=== PATIENT | female | born 1950 | race Caucasian/White ===

== ENCOUNTER → 2017-03-04 | Outpatient (CLI) | payer MEDICARE, OTHER | END | disposition home or self-care (01) | LOC: RAD 14:56 | PROVIDERS: ATTEND Family Medicine | DX: R10.9 Unspecified abdominal pain (principal) | CPT/HCPCS: 74020 ==

== ENCOUNTER → 2018-04-23 | Outpatient (CLI) | payer MEDICARE | END | disposition home or self-care (01) | LOC: CFH 13:11 → EDSTATUS 14:00 | PROVIDERS: ATTEND Family Medicine | DX: Z13.820 Encounter for screening for osteoporosis (principal); Z12.31 Encounter for screening mammogram for malignant neoplasm of breast; M85.88 Other specified disorders of bone density and structure, other site; N95.9 Unspecified menopausal and perimenopausal disorder; R92.1 Mammographic calcification found on diagnostic imaging of breast | CPT/HCPCS: 77063; 77080; 77067 ==

== ENCOUNTER 2020-10-03 07:22 | Outpatient (CLI) | payer MEDICARE ==
[~2020-10-03 07:22] MED LIST: ASPI-496 PO; HUMALOG; LEVO100T PO; NPH,100I4 SQ
[2020-10-04] MEDS ORDERED: REGADENOSON 0.4 MG/5 ML SYRINGE ONE (07:38)
== END 2020-10-04 23:59 | disposition home or self-care (01) ==
LOC: CFH 07:22
PROVIDERS: ATTEND Internal Medicine Cardiovascular Disease
DX: R94.31 Abnormal electrocardiogram [ECG] [EKG] (principal); I48.0 Paroxysmal atrial fibrillation
CPT/HCPCS: 78452; 93017; A9502; J2785

== ENCOUNTER → 2020-10-22 | Outpatient (CLI) | payer MEDICARE | END | disposition home or self-care (01) | LOC: CVU 15:20 | PROVIDERS: ATTEND Internal Medicine Cardiovascular Disease | DX: I08.1 Rheumatic disorders of both mitral and tricuspid valves (principal); E11.9 Type 2 diabetes mellitus without complications; I48.91 Unspecified atrial fibrillation; I10 Essential (primary) hypertension; Z79.01 Long term (current) use of anticoagulants | CPT/HCPCS: 93306; 93356 ==

== ENCOUNTER 2021-01-16 10:30 | Observation (INO) | payer MEDICARE ==
[~2021-01-16] VITALS: Ht 157.5 cm; Wt 88.0 kg
[2021-01-16] MEDS ORDERED: SODIUM CHLORIDE 0.9% 1,000 ML IV SCH (11:00)
[2021-01-16] MEDS ORDERED: ROSU10TA2 PO (11:12)
[2021-01-16] MEDS ORDERED: lispro insulin SQ (11:12)
[2021-01-16] MEDS ORDERED: METO50TA82 PO (11:12)
[2021-01-16] MEDS ORDERED: APIX5TAB PO (11:12)
[2021-01-16] MEDS ORDERED: TRAZ50TA66 PO (11:12)
[2021-01-16] MEDS ORDERED: FLEC50TA25 PO (11:12)
[2021-01-16 11:16] LABS: BASOPHILS % (AUTO) 1 % (0-1); EOSINOPHILS % (AUTO) 1 % (1-7); LYMPHOCYTES % (AUTO) 16 % (22-44); MEAN CORPUSCULAR HEMOGLOBIN 27.9 pg (27.0-34.8); MEAN CORPUSCULAR HGB CONC 32.6 g/dL (32.4-35.8); MEAN PLATELET VOLUME 8.8 fL (7.4-10.4); MONOCYTES % (AUTO) 7 % (2-9); NEUTROPHILS % (AUTO) 75 % (42-75); PLATELET COUNT 287 x10^3/uL (130-400); RED CELL DISTRIBUTION WIDTH 18.1 % (9.6-15.2)
[2021-01-16 11:19] LABS: MD NO
[2021-01-16 11:25] LABS: ANION GAP 7 mmol/L (5-15); CALCIUM 8.9 mg/dL (8.5-10.1); CHLORIDE 105 mmol/L (98-107); CREATININE 1.05 mg/dL (0.55-1.02)
[2021-01-16 11:26] LABS: PROTHROMBIN TIME 10.7 Seconds (9.6-11.5)
[2021-01-16] MEDS ORDERED: VANCOMYCIN 500 MG ONE (11:42)
[2021-01-16] MEDS ORDERED: FENTANYL PF 100 MCG/2ML ONE (11:42)
[2021-01-16] MEDS ORDERED: MIDAZOLAM 1 MG/ML, 5ML ONE (11:42)
[2021-01-16] MEDS ORDERED: VANCOMYCIN PMX 1GM/200ML 200 ML ONE (11:43)
[2021-01-16] MEDS ORDERED: LIDOCAINE 1%, 20ML ONE (11:43)
[2021-01-16] MEDS ORDERED: HYDROcodone/APAP 5/325 TABLET PO PRN (14:00)
[2021-01-16] MEDS ORDERED: ZOLPIDEM 5MG TABLET PO PRN (14:00)
[2021-01-16] MEDS ORDERED: ONDANSETRON 2MG/ML, 2ML IV PRN (14:00)
[2021-01-16] MEDS ORDERED: VANCOMYCIN PMX 1GM/200ML 200 ML IVPB SCH (14:00)
[2021-01-16] MEDS ORDERED: HOLD MEDICATION MC PRN (14:00)
[2021-01-16] MEDS: [UNRECOGNIZED DRUG - OTHER] SQ PRN ×2 (14:53→18:34)
[2021-01-16 15:30] VITALS: BP 128/72
[2021-01-16] MEDS: ACETAMINOPHEN 325 MG TABLET PO PRN ×2 (15:39→23:31)
[2021-01-16] MEDS: INSULIN NPH HUMAN 100 UNIT/ML, 3ML VIAL SQ-INSULIN SCH (18:31)
[2021-01-16 20:20] VITALS: BP 138/73
[2021-01-16] MEDS: FLECAINIDE 100MG TABLET PO SCH (20:32)
[2021-01-16] MEDS: METOPROLOL TARTRATE 25 MG TAB PO SCH (20:32)
[2021-01-16] MEDS: SODIUM CHLORIDE FLUSH 10ML SYR IVF SCH (20:33)
[2021-01-16] MEDS ORDERED: TRAZODONE 50MG TABLET PO SCH (21:00)
[2021-01-16] MEDS ORDERED: ATORVASTATIN 80 MG TABLET PO SCH (21:00)
[2021-01-16] MEDS ORDERED: VANCOMYCIN PMX 1GM/200ML 200 ML IV ONE (23:00)
[2021-01-17 01:45] VITALS: BP 133/79
[2021-01-17] MEDS: ACETAMINOPHEN 325 MG TABLET PO PRN ×2 (05:59→10:03)
[2021-01-17] MEDS ORDERED: LEVOTHYROXINE 125 MCG TABLET PO SCH (06:00)
[2021-01-17] MEDS: SODIUM CHLORIDE FLUSH 10ML SYR IVF SCH (08:36)
[2021-01-17] MEDS: FLECAINIDE 100MG TABLET PO SCH (08:36)
[2021-01-17] MEDS: METOPROLOL TARTRATE 25 MG TAB PO SCH (08:36)
[2021-01-17] MEDS: INSULIN NPH HUMAN 100 UNIT/ML, 3ML VIAL SQ-INSULIN SCH (08:37)
[2021-01-17] MEDS: [UNRECOGNIZED DRUG - OTHER] SQ PRN (08:39)
[2021-01-17 09:21] VITALS: BP 125/78
== END 2021-01-17 12:55 | disposition home or self-care (01) ==
LOC: CACL 10:30 → ORIP 13:42 → 5SO 14:00 → DCLOUNGE 01-17 12:44
PROVIDERS: ADMIT Internal Medicine Cardiovascular Disease; ATTEND Internal Medicine Cardiovascular Disease
DX: I49.5 Sick sinus syndrome (principal); I48.0 Paroxysmal atrial fibrillation; E78.2 Mixed hyperlipidemia; E10.9 Type 1 diabetes mellitus without complications; E03.9 Hypothyroidism, unspecified; Z79.899 Other long term (current) drug therapy; Z79.01 Long term (current) use of anticoagulants
CPT/HCPCS: 33208; 36005; 36415; 71045; 71046; 80048; 82962; 85025; 85610; 96365; 96372; 99156; 99157; C1779; C1785; C1892; G0378; J2250; J3010; J3370; J3490; Q9967